=== PATIENT | female | born 1980 | race African-American/Black ===

== ENCOUNTER 2016-09-23 19:38 | Emergency (ER) | payer OTHER ==
[~2016-09-23] VITALS: Ht 175.3 cm; Wt 144.2 kg
--- NOTE | ~2016-09-23 | EKG ---
[address] [place] [address] ELECTROCARDIOGRAM REPORT Name: TOBY CHOWDARY Room #: DEP [facility]#: [id number] Admission: 09/23/16 Attend Phys: Discharge: 09/23/16 Date of : 76 Report #: [id number] THIS REPORT FOR: //name// [facility] ED Test Date: 2016-09-23 Test Time: 19:42:52 Pat Name: TOBY CHOWDARY Department: Room: Gender: F Cleaner Operator: SEMAJ : 1980 Requested By: Carmen Quick Order Number: [id number] MD: Rico Villegas Measurements Intervals [place] Rate: 90 P: 46 SC: 151 QRS: 1 QRSD: 97 T: -2 QT: 375 QTc: 459 Interpretive Statements Sinus rhythm Poor R-wave progression Borderline T abnormalities, inferior leads Compared to ECG 02/10/2016 17:36:05 no significant change was found Electronically Signed On 09-25-2016 8:39:40 LOADING DOCK HELPER by Rico Villegas [email or web address] <ELECTRONICALLY SIGNED> By: Rico Villegas MD, [facility] 09/25/16 0839 41 41 Rico Villegas MD, [facility] /EPI
--- NOTE | ~2016-09-23 | EKG ---
[place] [address] [facility] [place] [address] ELECTROCARDIOGRAM REPORT Name: TOBY CHOWDARY Room #: DEP [facility]#: [id number] Admission: 09/23/16 Attend Phys: Discharge: 09/23/16 Date of : 76 Report #: [id number] THIS REPORT FOR: //name// [facility] ED Test Date: 2016-09-23 Test Time: 21:30:58 Pat Name: TOBY CHOWDARY Department: Room: Gender: F Teacher Vocal: MZOOK : 1980 Requested By: Carmen Quick Order Number: [id number] MD: Rico Villegas Measurements Intervals [place] Rate: 83 P: 41 [place]: 165 QRS: -2 QRSD: 100 T: -1 QT: 397 QTc: 467 Interpretive Statements Sinus rhythm Borderline T abnormalities, inferior leads Baseline wander in lead(s) I Compared to ECG 02/10/2016 17:36:05 no significant change was found Electronically Signed On 09-25-2016 8:42:40 TUNNEL ELASTIC OPERATOR LOCKSTITCH by Rico Villegas [email or web address] <ELECTRONICALLY SIGNED> By: Rico Villegas MD, [facility] 09/25/16 0842 29 29 Rico Villegas MD, [facility] /EPI
[~2016-09-23 19:38] MED LIST: ACETAZOLAMIDE250 M1 PO; ALBUTEROL2.5 MG/0.5 INH; ASPIRIN EC81 M1; AZITHROMYCIN 2250 MG PO; BAYER CHEWABLE81 MG PO; BENADRYL25 MG PO; CIPROFLOXACIN500 M3 PO; CITRATE OF MAG296 ML PO; CLONIDINE-TTS0.3 MG TRANSDERM; COLACE 100 MG100 MG PO; COREG25 MG PO; DEXAMETHASONE 22 M1 PO; FLAGYL500 MG PO; FLEXERIL PO; HYDROCHLOROTHIA25 M2 PO; HYDROCODON-ACE1 EAC7 PO; HYDROCODONE-AP1 EAC6 PO; IBUPROFEN 600600 M1 PO; IBUPROFEN 800800 M1 PO; IBUPROFEN 800800 MG PO; IMITREX 25 MG T25 M1 PO; IRON159 MG PO; IRON325 PO; LISINOPRIL2.5 MG; LISINOPRIL40 MG PO; LOPRESSOR50 PO; MIRAPEX1.5 MG PO; MOBIC15 MG PO; NEURONTIN 300300 M1 PO; NEXIUM10 MG PO; NEXIUM40 MG PO; NORCO 5-325 TA1 EACH PO; PHENERGAN 25 MG25 MG PO; POTASSIUM20 PO; PRISTIQ50 MG; PROVENTIL; PROVERA5 MG PO; RISPERDAL0.25 MG; SINGULAIR 10 MG10 M1 PO; SYMBICORT160 MCG/4. INH; SYMBICORT80 MCG/4.1 INH; TESSALON PERLE100 MG PO; TOPAMAX 25 MG T25 M1 PO; TRAMADOL 50 MG50 MG PO; VALIUM5 MG PO; VALSARTAN-HCTZ1 EAC4 PO; VENTOLIN HFA 1818 GM INH; VICODIN 5-5001 EACH PO; ZOFRAN ODT4 MG PO; ZPAK PO
[2016-09-23 20:23] LABS: HEMATOCRIT 37.5 % (37.0-47.0); MCHC 31.9 % (28.0-37.0); MCV 75.3 fL (80.0-100.0); RBC 4.97 mil/uL (4.20-5.00); RDW 16.5 % (10.5-14.5); WBC 6.8 thou/uL (4.0-11.0)
[2016-09-23 20:31] LABS: ANION GAP 9 mmol/L (7-16); BUN 9 mg/dL (7-18); CALCIUM 9.1 mg/dL (8.5-10.1); CHLORIDE 107 mmol/L (98-107); CO2 28 mmol/L (21-32); CREATININE 0.8 mg/dL (0.6-1.3); GLUCOSE 108 mg/dL (70-99); POTASSIUM 3.7 mmol/L (3.5-5.1); SODIUM 144 mmol/L (136-145)
[2016-09-23 20:40] LABS: ALBUMIN 3.5 g/dL (3.4-5.0); ALKALINE PHOSPHATASE 59 U/L (46-116); SGOT 17 U/L (15-37); SGPT 19 U/L (30-65); TOTAL BILIRUBIN 0.4 mg/dL (<0.1-1.0); TOTAL PROTEIN 7.4 g/dL (6.4-8.2); TROPONIN-I < 0.04 ng/mL (<0.04-0.07)
[2016-09-23] MEDS ORDERED: FLEXERIL PO (21:36)
[2016-09-23] MEDS ORDERED: MOBIC15 MG PO (21:36)
[2016-11-24] MEDS ORDERED: NAPROSYN500 MG PO (16:27)
[2016-11-24] MEDS ORDERED: HYDROCODONE-AP1 EAC6 PO (16:27)
== END 2016-09-23 22:37 | disposition home or self-care (01) ==
LOC: ER 19:38
PROVIDERS: Physician Assistant
DX: R07.89 Other chest pain (principal); I10 Essential (primary) hypertension; G43.809 Other migraine, not intractable, without status migrainosus; J45.909 Unspecified asthma, uncomplicated; G47.39 Other sleep apnea; N80.8 Other endometriosis; K21.9 Gastro-esophageal reflux disease without esophagitis; Z90.49 Acquired absence of other specified parts of digestive tract; Z86.73 Personal history of transient ischemic attack (TIA), and cerebral infarction without residual deficits; Z88.0 Allergy status to penicillin; Z88.8 Allergy status to other drugs, medicaments and biological substances; Z91.012 Allergy to eggs

== ENCOUNTER 2016-10-08 21:38 | Inpatient (IN) | payer OTHER ==
[~2016-10-08] VITALS: Ht 175.3 cm; Wt 143.4 kg
--- NOTE | ~2016-10-08 | CARDNUC ---
[facility] [place] [address] CARDIAC NUCLEAR IMAGING REPORT Name: TOBY CHOWDARY Room #: 209-P [facility] IN ..#: [id number] Admission: 10/10/16 Attend Phys: Linda Kat Discharge: 10/10/16 Date of : 76 Date of Service: 10/10/16 1006 Report #: [id number] THIS REPORT FOR: //name// CC: Linda Reis Guillermina Felisha DATE OF SERVICE: 10/10/2016 MYOCARDIAL PERFUSION IMAGING STUDY USING REGADENOSON GENDER: Female. REFERRING DOCTOR: China Rodriguez MD INDICATION: Chest pain. CORONARY HISTORY: None. CARDIOVASCULAR RISK FACTORS: Hypertension. CARDIAC MEDICATIONS: Carvedilol, losartan, clonidine. TYPE OF STUDY: The patient underwent a SPECT study. STRESS PROTOCOL: A total of 0.4 mg of regadenoson was injected intravenously, followed by Cardiolite. The patient did not ambulate during the procedure. HEMODYNAMIC DATA: The resting heart rate was 81 beats per minute, with a blood pressure 154/80 mmHg. Following regadenoson, the heart rate increased to 120 beats per minute and the systolic blood pressure increased to 160 mmHg. The patient had symptoms consistent with regadenoson, but no chest discomfort. ELECTROCARDIOGRAM: The resting electrocardiogram reveals sinus rhythm, low voltage in the precordial leads, nonspecific ST-T wave abnormalities in the inferolateral leads. Following regadenoson, there were no significant arrhythmias and ECG is uninterpretable for ST segment change. PERFUSION IMAGING: Myocardial perfusion imaging was performed using Cardiolite, 40.4 mCi for the resting images and 41.8 mCi for the stress images. This was a 2-day high dose imaging protocol. Gated SPECT images were obtained. Comparison of the post-pharmacologic stress and rest images reveal a mild area of predominately fixed defect in the distal anterior segment. There is a small area of reversibility. This fixed defect is most likely related to a soft tissue artifact. However, all small area of ischemia could not be excluded. The gated portion of the study revealed normal global and segmental LV systolic [place] [address] CARDIAC NUCLEAR IMAGING REPORT Name: TOBY CHOWDARY Room #: 209-P [facility] IN .R.#: [id number] Admission: 10/10/16 Attend Phys: Linda Kat Discharge: 10/10/16 Date of : 76 Date of Service: 10/10/16 1006 Report #: [id number], ejection fraction of 70%. IMPRESSION: 1. Clinical response, nondiagnostic. 2. Stress ECG response, nondiagnostic. 3. Perfusion imaging, equivocal for ischemia. 4. Ventricular function, normal. CONCLUSION: This study reveals a predominately fixed defect in the distal anterior segment, probably due to a soft tissue artifact. However, there is a small area of reversibility and ischemia cannot be excluded. There is normal global and segmental left ventricular systolic function. <ELECTRONICALLY SIGNED> By: Walter Merritt MD 10/11/16 0815 1006 1028 Walter Merritt MD /nt
--- NOTE | ~2016-10-08 | EKG ---
[place] [address] [facility] [place] [address] ELECTROCARDIOGRAM REPORT Name: TOBY CHOWDARY Room #: 209-[facility] M.R.#: [id number] Admission: 10/08/16 Attend Phys: China Rodriguez MD Discharge: Date of : 76 Report #: [id number] THIS REPORT FOR: //name// [facility] ED Test Date: 2016-10-08 Test Time: 21:42:55 Pat Name: TOBY CHOWDARY Department: Room: 209 Gender: F Protein Chemist: MZLUCIA : 1980 Requested By: Akilah Rojas Order Number: [id number] MD: Rico Villegas Measurements Intervals [place] Rate: 98 P: 54 OR: 151 QRS: -13 QRSD: 98 T: -56 QT: 327 QTc: 418 Interpretive Statements Sinus rhythm Poor R-wave progression Nonspecific T abnormalities, diffuse leads Compared to ECG 09/23/2016 21:30:58 T-wave abnormality more pronounced Electronically Signed On 10-09-2016 7:50:17 MANAGER STORE by Rico Villegas [email or web address] <ELECTRONICALLY SIGNED> By: Rico Villegas MD, [facility] 10/09/16 [facility]0 2142 2142 Rico Villegas MD, [facility] /EPI
--- NOTE | ~2016-10-08 | EKG ---
[address] [place] [address] ELECTROCARDIOGRAM REPORT Name: TOBY CHOWDARY Room #: 209-[facility].R.#: [id number] Admission: 10/08/16 Attend Phys: China Rodriguez MD Discharge: Date of : 76 Report #: [id number] THIS REPORT FOR: //name// [facility] Test Date: 2016-10-09 Test Time: 04:12:59 Pat Name: TOBY CHOWDARY Department: Room: 209 Gender: F Biomedical Engineering Aide: KHUSHBOO : 1980 Requested By: Dannielle Vicente Order Number: [id number] MD: Rico Villegas Measurements Intervals [place] Rate: 81 P: 62 [place]: 165 QRS: -11 QRSD: 94 T: -7 QT: 375 QTc: 436 Interpretive Statements Sinus rhythm Nonspecific T wave abnormality No previous ECGs available for comparison Electronically Signed On 10-09-2016 7:55:20 SUPPLIER QUALITY ENGINEERING MANAGER by Rico Villegas [email or web address] <ELECTRONICALLY SIGNED> By: Rico Villegas MD, [facility] 10/09/16 0755 0412 1 Rico Villegas MD, [facility] /EPI
[2016-10-08 21:40] VITALS: BP 198/121
[2016-10-08] MEDS ORDERED: NAPROSYN500 MG PO (22:11)
[2016-10-08] MEDS ORDERED: ASPIR 8181 MG PO (22:11)
[2016-10-08] MEDS ORDERED: TOPAMAX50 MG PO (22:13)
[2016-10-08 22:44] LABS: ABSOLUTE NEUTROPHILS 4.8 thou/uL (1.4-8.2); HEMATOCRIT 36.7 % (37.0-47.0); HEMOGLOBIN 11.6 gm/dL (12.0-15.0); LYMPHOCYTES 29.2 % (24.0-44.0); MCH 23.6 pg (26.0-34.0); MCHC 31.7 % (28.0-37.0); MCV 74.5 fL (80.0-100.0); MONOCYTES 6.7 % (1.0-8.0); PLATELET COUNT 238 thou/uL (150-400); POLYS 62.1 % (36.0-66.0); RBC 4.92 mil/uL (4.20-5.00); RDW 16.3 % (10.5-14.5); WBC 7.7 thou/uL (4.0-11.0)
[2016-10-08 22:45] LABS: MANUAL DIFF NO
[2016-10-08 22:52] LABS: ANION GAP 7 mmol/L (7-16); BUN 9 mg/dL (7-18); CALCIUM 8.9 mg/dL (8.5-10.1); CHLORIDE 104 mmol/L (98-107); CO2 30 mmol/L (21-32); CREATININE 0.8 mg/dL (0.6-1.3); GLUCOSE 120 mg/dL (70-99); POTASSIUM 3.7 mmol/L (3.5-5.1); SODIUM 141 mmol/L (136-145)
[2016-10-08 22:56] LABS: APTT 22.9 Seconds (24.5-32.8); INR 1.1; PROTIME 10.9 Seconds (9.3-11.4)
[2016-10-08 23:04] LABS: ALBUMIN 3.7 g/dL (3.4-5.0); ALKALINE PHOSPHATASE 56 U/L (46-116); NT-PRO BRAIN NAT PEPTIDE 106 pg/mL (<300); SGOT 9 U/L (15-37); SGPT 16 U/L (30-65); TOTAL BILIRUBIN 0.6 mg/dL (<0.1-1.0); TOTAL PROTEIN 7.7 g/dL (6.4-8.2); TROPONIN-I < 0.04 ng/mL (<0.04-0.07)
[2016-10-08 23:51] VITALS: BP 165/100
[2016-10-09 00:15] VITALS: BP 159/60
[2016-10-09] MEDS ORDERED: IMITREX 50 MG T50 MG PO (01:40)
[2016-10-09 03:31] VITALS: BP 109/74
[2016-10-09 04:53] LABS: CHOLESTEROL 154 mg/dL (<200); HDL CHOLESTEROL 74 mg/dL (>40); LDL CHOLESTEROL 73 mg/dL (<100); TC:HDL 2.1 Ratio (Not establshd); TRIGLYCERIDE 38 mg/dL (<150); TROPONIN-I < 0.04 ng/mL (<0.04-0.07); VLDL 8 mg/dL (<40)
[2016-10-09 07:00] VITALS: BP 138/77
[2016-10-09 11:05] VITALS: BP 141/82
[2016-10-09 16:20] VITALS: BP 123/74
[2016-10-09 20:41] VITALS: BP 115/69
[2016-10-10 05:26] VITALS: BP 125/69
[2016-10-10 08:30] VITALS: BP 142/71
[2016-10-10 12:30] VITALS: BP 142/88
[2016-10-10 17:00] VITALS: BP 142/93
[2016-10-10 17:12] VITALS: BP 142/88
[2016-11-24] MEDS ORDERED: NAPROSYN500 MG PO (16:27)
[2016-11-24] MEDS ORDERED: HYDROCODONE-AP1 EAC6 PO (16:27)
== END 2016-10-10 18:39 | disposition home or self-care (01) | DRG 206 ==
LOC: ER 21:38 → EROBS 23:45 → 2N 23:45
PROVIDERS: Emergency Medicine; Nurse Practitioner Acute Care
DX: M94.0 Chondrocostal junction syndrome [Tietze] (principal); I69.954 Hemiplegia and hemiparesis following unspecified cerebrovascular disease affecting left non-dominant side; K21.9 Gastro-esophageal reflux disease without esophagitis; I10 Essential (primary) hypertension; I16.0 Hypertensive urgency; G47.33 Obstructive sleep apnea (adult) (pediatric); Z96.651 Presence of right artificial knee joint; G43.909 Migraine, unspecified, not intractable, without status migrainosus; J45.909 Unspecified asthma, uncomplicated; Z90.49 Acquired absence of other specified parts of digestive tract; Z88.8 Allergy status to other drugs, medicaments and biological substances; Z91.012 Allergy to eggs; Z88.0 Allergy status to penicillin; Z79.82 Long term (current) use of aspirin; Z86.711 Personal history of pulmonary embolism; Z79.899 Other long term (current) drug therapy; Z82.49 Family history of ischemic heart disease and other diseases of the circulatory system; Z83.3 Family history of diabetes mellitus; Z84.1 Family history of disorders of kidney and ureter; H54.7 Unspecified visual loss; Z91.018 Allergy to other foods
CPT/HCPCS: 10081

== ENCOUNTER 2017-02-11 18:34 | Emergency (ER) | payer OTHER ==
[~2017-02-11] VITALS: Ht 177.8 cm; Wt 127.0 kg
--- NOTE | ~2017-02-11 | EKG ---
[address] [address] ELECTROCARDIOGRAM REPORT Name: TOBY CHOWDARY Room #: DEP [facility]#: [id number] Admission: 02/11/17 Attend Phys: Discharge: 02/11/17 Date of : 76 Report #: [id number] THIS REPORT FOR: //name// [facility] ED Test Date: 2017-02-11 Test Time: 19:34:15 Pat Name: TOBY CHOWDARY Department: Room: Gender: F Naprapath: [id number] : 1980 Requested By: Dakota Burks Order Number: [id number] MD: Edis Paula Measurements Intervals [place] Rate: 81 P: 59 OK: 155 QRS: -6 QRSD: 99 T: 7 QT: 395 QTc: 459 Interpretive Statements Sinus rhythm Probable left atrial enlargement Borderline T wave abnormalities Borderline ST elevation, anterior leads Baseline wander in lead(s) V2 Electronically Signed On 02-12-2017 8:09:17 CDT by Edis Paula [email or web address] <ELECTRONICALLY SIGNED> By: Edis Paula MD 05/808 33 33 Edis Paula MD /JAMILAH
[~2017-02-11 18:34] MED LIST changes: +ASPIR 8181 MG PO; +IMITREX 50 MG T50 MG PO; +NAPROSYN500 MG PO; +TOPAMAX50 MG PO
[2017-02-11 19:39] LABS: ABSOLUTE NEUTROPHILS 3.9 thou/uL (1.4-8.2); BASOPHILS 0.9 % (0.0-2.0); HEMATOCRIT 40.1 % (37.0-47.0); LYMPHOCYTES 32.7 % (24.0-44.0); MCH 23.8 pg (26.0-34.0); MCHC 32.4 g/dL (28.0-37.0); MCV 73.6 fL (80.0-100.0); MONOCYTES 9.3 % (1.0-8.0); PLATELET COUNT 225 thou/uL (150-400); POLYS 55.1 % (36.0-66.0); RBC 5.45 mil/uL (4.20-5.00)
[2017-02-11 19:41] LABS: MANUAL DIFF NO
[2017-02-11 19:52] LABS: ANION GAP 7 mmol/L (7-16); BUN 5 mg/dL (7-18); CALCIUM 9.7 mg/dL (8.5-10.1); CHLORIDE 105 mmol/L (98-107); CO2 30 mmol/L (21-32); CREATININE 0.8 mg/dL (0.6-1.0); GLUCOSE 100 mg/dL (74-106); POTASSIUM 3.8 mmol/L (3.5-5.1); SODIUM 142 mmol/L (136-145)
[2017-02-11 20:04] LABS: NT-PRO BRAIN NAT PEPTIDE 24 pg/mL (<300); TROPONIN-I < 0.04 ng/mL (<0.04-0.07)
[2017-02-11 20:09] LABS: ANISOCYTOSIS 2+; MICROCYTES 2+
== END 2017-02-11 21:38 | disposition home or self-care (01) ==
LOC: ER 18:34
PROVIDERS: Nurse Practitioner
DX: R53.83 Other fatigue (principal); I10 Essential (primary) hypertension; G43.909 Migraine, unspecified, not intractable, without status migrainosus; J45.909 Unspecified asthma, uncomplicated; G47.30 Sleep apnea, unspecified; K21.9 Gastro-esophageal reflux disease without esophagitis; N80.9 Endometriosis, unspecified; Z90.49 Acquired absence of other specified parts of digestive tract; Z86.73 Personal history of transient ischemic attack (TIA), and cerebral infarction without residual deficits; Z88.0 Allergy status to penicillin; Z88.8 Allergy status to other drugs, medicaments and biological substances; Z91.018 Allergy to other foods; Z91.012 Allergy to eggs

== ENCOUNTER 2017-04-24 23:33 | Emergency (ER) | payer OTHER ==
[~2017-04-24] VITALS: Ht 180.3 cm; Wt 140.6 kg
--- NOTE | ~2017-04-24 | EKG ---
[place] [address] [facility] [place] [address] ELECTROCARDIOGRAM REPORT Name: TOBY CHOWDARY Room #: DEP [facility]#: [id number] Admission: 04/24/17 Attend Phys: Discharge: 04/25/17 Date of : 76 Report #: [id number] THIS REPORT FOR: //name// [facility] ED Test Date: 2017-04-25 Test Time: 00:14:52 Pat Name: TOBY CHOWDARY Department: Room: Gender: F Mechanic Marine Engine: RAYRAY : 1980 Requested By: Saritha Bernstein Order Number: [id number] MD: Rico Villegas Measurements Intervals [place] Rate: 87 P: 62 MS: 169 QRS: -1 QRSD: 98 T: -1 QT: 387 QTc: 466 Interpretive Statements Sinus rhythm Probable left atrial enlargement Baseline wander in lead(s) V2 Compared to ECG 02/11/2017 19:34:15 No significant change was found Electronically Signed On 04-26-2017 8:48:22 CDT by Rico Villegas [email or web address] <ELECTRONICALLY SIGNED> By: Rico Villegas MD, [facility] 04/26/17 0848 0014 0014 Rico Villegas MD, [facility] /EPI
[2017-04-25 01:39] LABS: ABSOLUTE NEUTROPHILS 2.9 thou/uL (1.4-8.2); EOSINOPHILS 2.6 % (0.0-3.0); HEMATOCRIT 38.9 % (37.0-47.0); HEMOGLOBIN 12.5 gm/dL (12.0-15.0); LYMPHOCYTES 38.9 % (24.0-44.0); MCH 24.1 pg (26.0-34.0); MCHC 32.2 g/dL (28.0-37.0); MCV 74.8 fL (80.0-100.0); MONOCYTES 8.9 % (1.0-8.0); PLATELET COUNT 200 thou/uL (150-400); POLYS 48.6 % (36.0-66.0); RBC 5.21 mil/uL (4.20-5.00); RDW 17.5 % (10.5-14.5)
[2017-04-25 01:45] LABS: ANION GAP 7 mmol/L (7-16); BUN 7 mg/dL (7-18); CALCIUM 9.4 mg/dL (8.5-10.1); CHLORIDE 103 mmol/L (98-107); CO2 31 mmol/L (21-32); CREATININE 0.8 mg/dL (0.6-1.0); GLUCOSE 96 mg/dL (74-106); POTASSIUM 3.5 mmol/L (3.5-5.1); SODIUM 141 mmol/L (136-145)
[2017-04-25 01:53] LABS: TROPONIN-I < 0.04 ng/mL (<0.04-0.07)
[2017-04-25 01:54] LABS: MANUAL DIFF NO
[2017-04-25] MEDS ORDERED: MOBIC15 MG PO (03:57)
== END 2017-04-25 04:15 | disposition home or self-care (01) ==
LOC: ER 23:33
PROVIDERS: Emergency Medicine
DX: R07.89 Other chest pain (principal); I10 Essential (primary) hypertension; G43.909 Migraine, unspecified, not intractable, without status migrainosus; J45.909 Unspecified asthma, uncomplicated; K21.9 Gastro-esophageal reflux disease without esophagitis; Z98.890 Other specified postprocedural states; Z86.73 Personal history of transient ischemic attack (TIA), and cerebral infarction without residual deficits; Z90.49 Acquired absence of other specified parts of digestive tract; Z88.0 Allergy status to penicillin; Z91.018 Allergy to other foods; Z91.012 Allergy to eggs

== ENCOUNTER 2017-06-29 21:55 | Emergency (ER) | payer OTHER ==
[~2017-06-29] VITALS: Ht 177.8 cm; Wt 142.9 kg
[2017-06-29] MEDS ORDERED: PREDNISONE 20 M20 MG PO (23:33)
== END 2017-06-30 00:07 | disposition home or self-care (01) ==
LOC: ER 21:55
DX: T78.40XA Allergy, unspecified, initial encounter (principal); Z86.711 Personal history of pulmonary embolism; Z88.0 Allergy status to penicillin; Z88.8 Allergy status to other drugs, medicaments and biological substances; Z91.012 Allergy to eggs; Z91.018 Allergy to other foods; I10 Essential (primary) hypertension; J45.909 Unspecified asthma, uncomplicated; K21.9 Gastro-esophageal reflux disease without esophagitis; X58.XXXA Exposure to other specified factors, initial encounter; G43.909 Migraine, unspecified, not intractable, without status migrainosus

== ENCOUNTER 2017-11-25 22:36 | Emergency (ER) | payer OTHER ==
[~2017-11-25] VITALS: Ht 175.3 cm; Wt 136.1 kg
[~2017-11-25 22:36] MED LIST changes: +PREDNISONE 20 M20 MG PO; +XARELTO15 MG PO
[2017-11-25] MEDS ORDERED: LISINOPRIL10 MG PO (22:42)
[2017-11-25] MEDS ORDERED: MIRAPEX0.125 MG PO (22:44)
[2017-11-25] MEDS ORDERED: ULTRAM 50MG TAB50 MG PO ×2 (23:40→23:54)
[2017-11-26 00:18] VITALS: BP 169/98
== END 2017-11-26 00:19 | disposition home or self-care (01) ==
LOC: ER 22:36
DX: M25.561 Pain in right knee (principal); M25.571 Pain in right ankle and joints of right foot; I10 Essential (primary) hypertension; G43.909 Migraine, unspecified, not intractable, without status migrainosus; J45.909 Unspecified asthma, uncomplicated; K21.9 Gastro-esophageal reflux disease without esophagitis; G47.30 Sleep apnea, unspecified; Z90.49 Acquired absence of other specified parts of digestive tract; Z88.0 Allergy status to penicillin

== ENCOUNTER 2018-01-28 14:16 | Emergency (ER) | payer OTHER ==
[~2018-01-28] VITALS: Ht 177.8 cm; Wt 141.1 kg
--- NOTE | ~2018-01-28 | EKG ---
[address] [address] ELECTROCARDIOGRAM REPORT Name: TOBY CHOWDARY Room #: REG [facility]#: [id number] Admission: 01/28/18 Attend Phys: Discharge: Date of : 76 Report #: [id number] THIS REPORT FOR: //name// [facility] ED Test Date: 2018-01-28 Test Time: 14:29:48 Pat Name: TOBY CHOWDARY Department: Room: Gender: F Software Engineer Mobile: AT : 1980 Requested By: Percy Stout Order Number: [id number] MD: Edis Paula Measurements Intervals [place] Rate: 105 P: 43 PA: 150 QRS: -2 QRSD: 91 T: 40 QT: 344 QTc: 455 Interpretive Statements Sinus tachycardia Left atrial enlargement Left ventricular hypertrophy Compared to ECG 04/25/2017 00:14:52 Left ventricular hypertrophy now present Sinus rhythm no longer present Electronically Signed On 01-28-2018 16:45:54 CDT by Edis Paula [email or web address] <ELECTRONICALLY SIGNED> By: Edis Paula MD 01/28/18 1645 1429 1429 Edis Paula MD /JAMILAH
[~2018-01-28 14:16] MED LIST changes: +LISINOPRIL10 MG PO; +MIRAPEX0.125 MG PO; +ULTRAM 50MG TAB50 MG PO
[2018-01-28 15:04] LABS: BASOPHILS 1.9 % (0.0-2.0); EOSINOPHILS 1.2 % (0.0-3.0); HEMATOCRIT 33.2 % (37.0-47.0); HEMOGLOBIN 10.3 gm/dL (12.0-15.0); LYMPHOCYTES 30.2 % (24.0-44.0); MCH 21.1 pg (26.0-34.0); MCHC 31.1 g/dL (28.0-37.0); MCV 67.9 fL (80.0-100.0); PLATELET COUNT 315 thou/uL (150-400); POLYS 57.7 % (36.0-66.0); RBC 4.89 mil/uL (4.20-5.00); RDW 19.3 % (10.5-14.5); WBC 6.9 thou/uL (4.0-11.0)
[2018-01-28 15:15] LABS: ANION GAP 4 mmol/L (7-16); BUN 10 mg/dL (7-18); CALCIUM 9.2 mg/dL (8.5-10.1); CHLORIDE 104 mmol/L (98-107); CO2 31 mmol/L (21-32); GLUCOSE 96 mg/dL (74-106); POTASSIUM 4.4 mmol/L (3.5-5.1); SODIUM 139 mmol/L (136-145)
[2018-01-28 15:24] LABS: ALBUMIN 3.9 g/dL (3.4-5.0); SGOT 30 U/L (15-37); SGPT 18 U/L (30-65); TOTAL BILIRUBIN 0.7 mg/dL (<0.1-1.0); TOTAL PROTEIN 8.2 g/dL (6.4-8.2); TROPONIN-I < 0.04 ng/mL (<0.06)
[2018-01-28 15:40] LABS: ANISOCYTOSIS 2+; HYPOCHROMASIA 2+; MICROCYTES 1+; TARGET CELLS OCCASIONAL
== END 2018-01-28 17:22 | disposition home or self-care (01) ==
LOC: ER 14:16
PROVIDERS: Emergency Medicine
DX: R07.9 Chest pain, unspecified (principal); I10 Essential (primary) hypertension; J45.909 Unspecified asthma, uncomplicated; G43.909 Migraine, unspecified, not intractable, without status migrainosus; K21.9 Gastro-esophageal reflux disease without esophagitis; Z90.49 Acquired absence of other specified parts of digestive tract; Z88.0 Allergy status to penicillin

== ENCOUNTER 2018-02-20 01:34 | Emergency (ER) | payer OTHER | END 2018-02-20 03:39 | disposition home or self-care (01) | LOC: ER 01:34 | DX: R19.7 Diarrhea, unspecified (principal); R11.2 Nausea with vomiting, unspecified; K12.1 Other forms of stomatitis; I10 Essential (primary) hypertension; G43.909 Migraine, unspecified, not intractable, without status migrainosus; J45.909 Unspecified asthma, uncomplicated; K21.9 Gastro-esophageal reflux disease without esophagitis; Z90.49 Acquired absence of other specified parts of digestive tract; Z88.0 Allergy status to penicillin; Z88.8 Allergy status to other drugs, medicaments and biological substances ==

== ENCOUNTER 2018-04-16 09:10 | Emergency (ER) | payer OTHER ==
[~2018-04-16] VITALS: Ht 172.7 cm; Wt 124.7 kg
--- NOTE | ~2018-04-16 | EKG ---
[place] [address] [facility] [place] [address] ELECTROCARDIOGRAM REPORT Name: TOBY CHOWDARY Room #: DEP [facility]#: [id number] Admission: 04/16/18 Attend Phys: Discharge: 04/16/18 Date of : 76 Report #: [id number] THIS REPORT FOR: //name// [facility] ED Test Date: 2018-04-16 Test Time: 09:17:52 Pat Name: TOBY CHOWDARY Department: Room: Gender: F Blower Blast Furnace: ADRIAN : 1980 Requested By: Carmen Quick Order Number: [id number] MD: Rico Villegas Measurements Intervals [place] Rate: 83 P: 49 [place]: 150 QRS: -2 QRSD: 99 T: -1 QT: 395 QTc: 465 Interpretive Statements Sinus rhythm Nonspecific T wave abnormality Left ventricular hypertrophy Compared to ECG 01/28/2018 14:29:48 Sinus tachycardia no longer present Electronically Signed On 04-16-2018 16:13:47 CDT by Rico Villegas [email or web address] <ELECTRONICALLY SIGNED> By: Rico Villegas MD, [facility] 04/16/18 1613 6 6 Rico Villegas MD, [facility] /EPI
[2018-04-16 09:49] LABS: ABSOLUTE NEUTROPHILS 2.5 thou/uL (1.4-8.2); BASOPHILS 1.4 % (0.0-2.0); EOSINOPHILS 2.7 % (0.0-3.0); HEMATOCRIT 30.4 % (37.0-47.0); HEMOGLOBIN 9.5 gm/dL (12.0-15.0); LYMPHOCYTES 37.7 % (24.0-44.0); MCH 20.2 pg (26.0-34.0); MCHC 31.3 g/dL (28.0-37.0); MCV 64.3 fL (80.0-100.0); PLATELET COUNT 209 thou/uL (150-400); POLYS 49.2 % (36.0-66.0); RBC 4.73 mil/uL (4.20-5.00); RDW 19.9 % (10.5-14.5)
[2018-04-16 09:59] LABS: ANION GAP 6 mmol/L (7-16); BUN 10 mg/dL (7-18); CALCIUM 9.2 mg/dL (8.5-10.1); CHLORIDE 105 mmol/L (98-107); CO2 28 mmol/L (21-32); CREATININE 0.8 mg/dL (0.6-1.0); GLUCOSE 94 mg/dL (74-106); POTASSIUM 3.8 mmol/L (3.5-5.1); SODIUM 139 mmol/L (136-145)
[2018-04-16 10:07] LABS: ALBUMIN 3.9 g/dL (3.4-5.0); SGOT 16 U/L (15-37); SGPT 19 U/L (30-65); TOTAL PROTEIN 7.8 g/dL (6.4-8.2); TROPONIN-I <0.06 ng/mL (<0.06)
[2018-04-16 10:52] LABS: ANISOCYTOSIS 2+; HYPOCHROMASIA 1+; MICROCYTES 2+; PLATELET ESTIMATE NORMAL
[2018-04-16 11:13] LABS: URINE BILIRUBIN NEGATIVE (Negative); URINE BLOOD NEGATIVE (Negative); URINE CLARITY CLEAR; URINE COLOR YELLOW; URINE GLUCOSE-RANDOM* NEGATIVE (Negative); URINE KETONES NEGATIVE (Negative); URINE LEUKOCYTES-REFLEX NEGATIVE (Negative); URINE NITRITE-REFLEX NEGATIVE (Negative); URINE PROTEIN (DIPSTICK) NEGATIVE (Negative); URINE UROBILINOGEN 0.2 E.U./dl (0.2-1.0)
[2018-04-16] MEDS ORDERED: ULTRAM 50MG TAB50 MG PO (12:21)
== END 2018-04-16 12:45 | disposition home or self-care (01) ==
LOC: ER 09:10
PROVIDERS: Physician Assistant
DX: R07.89 Other chest pain (principal); I10 Essential (primary) hypertension; D53.9 Nutritional anemia, unspecified; Z91.14 Patient's other noncompliance with medication regimen; G43.909 Migraine, unspecified, not intractable, without status migrainosus; J45.909 Unspecified asthma, uncomplicated; G47.30 Sleep apnea, unspecified; K21.9 Gastro-esophageal reflux disease without esophagitis; Z86.73 Personal history of transient ischemic attack (TIA), and cerebral infarction without residual deficits; Z88.0 Allergy status to penicillin; Z91.012 Allergy to eggs; Z91.02 Food additives allergy status

== ENCOUNTER 2018-09-17 02:19 | Emergency (ER) | payer OTHER ==
[~2018-09-17] VITALS: Ht 177.8 cm; Wt 138.8 kg
[2018-09-17 05:12] LABS: ABSOLUTE NEUTROPHILS 3.4 thou/uL (1.4-8.2); EOSINOPHILS 2.4 % (0.0-3.0); HEMATOCRIT 35.4 % (37.0-47.0); HEMOGLOBIN 10.8 gm/dL (12.0-15.0); LYMPHOCYTES 31.9 % (24.0-44.0); MCHC 30.6 g/dL (28.0-37.0); MCV 65.4 fL (80.0-100.0); PLATELET COUNT 209 thou/uL (150-400); POLYS 55.7 % (36.0-66.0); RBC 5.41 mil/uL (4.20-5.00); RDW 21.6 % (10.5-14.5); WBC 6.2 thou/uL (4.0-11.0)
[2018-09-17 05:18] LABS: ANION GAP 7 mmol/L (7-16); BUN 13 mg/dL (7-18); CALCIUM 9.7 mg/dL (8.5-10.1); CHLORIDE 102 mmol/L (98-107); CO2 30 mmol/L (21-32); CREATININE 0.8 mg/dL (0.6-1.0); GLUCOSE 111 mg/dL (74-106); POTASSIUM 3.7 mmol/L (3.5-5.1); SODIUM 139 mmol/L (136-145)
[2018-09-17 05:27] LABS: ALBUMIN 4.3 g/dL (3.4-5.0); SGOT 17 U/L (15-37); SGPT 18 U/L (30-65); TOTAL BILIRUBIN 0.5 mg/dL (<0.1-1.0); TOTAL PROTEIN 8.6 g/dL (6.4-8.2); TROPONIN-I <0.06 ng/mL (<0.06)
[2018-09-17 06:19] LABS: ANISOCYTOSIS 2+; HYPOCHROMASIA 3+; MICROCYTES 3+
[2018-09-17] MEDS ORDERED: REGLAN 10 MG TA10 MG PO (07:45)
[2018-09-17 08:19] VITALS: BP 131/79
--- NOTE | 2018-09-17 08:48 | EKG ---
[address] [address] ELECTROCARDIOGRAM REPORT Name: TOBY CHOWDARY Room #: DEP [facility]#: [id number] Admission: 09/17/18 Attend Phys: Discharge: 09/17/18 Date of : 76 Report #: [id number] THIS REPORT FOR: //name// [facility] ED Test Date: 2018-09-17 Test Time: 05:12:04 Pat Name: TOBY CHOWDARY Department: Room: Gender: F Ticket Printer: judi : 1980 Requested By: Marilee Loving Order Number: [id number] MD: Edis Paula Measurements Intervals [place] Rate: 88 P: 50 [place]: 160 QRS: -3 QRSD: 99 T: -3 QT: 392 QTc: 475 Interpretive Statements Sinus rhythm Probable left ventricular hypertrophy Borderline T abnormalities, inferior leads Compared to ECG 04/16/2018 09:17:52 No significant changes Electronically Signed On 09-17-2018 8:47:48 PARK RECREATION MANAGER by Edis Paula [email or web address] <ELECTRONICALLY SIGNED> By: Edis Paula MD 09/17/18 0847 1 1 Edis Paula MD /JAMILAH
== END 2018-09-17 08:25 | disposition home or self-care (01) ==
LOC: ER 02:19
PROVIDERS: Student in an Organized Health Care Education/Training Program
DX: R51 Headache (principal); N80.9 Endometriosis, unspecified; K21.9 Gastro-esophageal reflux disease without esophagitis; I10 Essential (primary) hypertension; J45.909 Unspecified asthma, uncomplicated; G47.30 Sleep apnea, unspecified; Z88.0 Allergy status to penicillin; Z86.718 Personal history of other venous thrombosis and embolism; Z88.8 Allergy status to other drugs, medicaments and biological substances; Z91.012 Allergy to eggs; Z91.018 Allergy to other foods; Z86.73 Personal history of transient ischemic attack (TIA), and cerebral infarction without residual deficits; Z90.49 Acquired absence of other specified parts of digestive tract

== ENCOUNTER 2018-12-07 20:39 | Emergency (ER) | payer OTHER ==
[~2018-12-07] VITALS: Ht 175.3 cm; Wt 145.2 kg
[~2018-12-07 20:39] MED LIST changes: +REGLAN 10 MG TA10 MG PO
[2018-12-07 21:23] LABS: HEMATOCRIT 31.5 % (37.0-47.0); MCHC 31.8 g/dL (28.0-37.0); MCV 66.1 fL (80.0-100.0); PLATELET COUNT 226 thou/uL (150-400); RBC 4.77 mil/uL (4.20-5.00); RDW 21.3 % (10.5-14.5)
[2018-12-07 21:28] LABS: ANION GAP 9 mmol/L (7-16); BUN 8 mg/dL (7-18); CALCIUM 9.3 mg/dL (8.5-10.1); CHLORIDE 103 mmol/L (98-107); CO2 28 mmol/L (21-32); CREATININE 0.7 mg/dL (0.6-1.0); GLUCOSE 93 mg/dL (74-106); POTASSIUM 3.6 mmol/L (3.5-5.1); SODIUM 140 mmol/L (136-145)
[2018-12-07 21:38] LABS: TROPONIN-I <0.06 ng/mL (<0.06)
[2018-12-07 23:21] LABS: ABSOLUTE NEUTROPHILS 2.5 thou/uL (1.4-8.2)
[2018-12-07 23:23] LABS: ANISOCYTOSIS 2+; HYPOCHROMASIA 2+; LARGE PLATELETS RARE; MICROCYTES 3+; PLATELET ESTIMATE NORMAL; POLYCHROMASIA 1+
[2018-12-08] MEDS ORDERED: FLEXERIL PO (02:15)
[2018-12-08] MEDS ORDERED: ICY HOT 4%-1%76.5 GM TOP (02:15)
[2018-12-08 02:35] VITALS: BP 161/101
--- NOTE | 2018-12-08 17:00 | EKG ---
[place] [address] [facility] [employer] [place] [address] ELECTROCARDIOGRAM REPORT Name: TOBY CHOWDARY Room #: DEP [facility]#: [id number] ������������������ Admission: 12/07/18 ������������������ Attend Phys: Discharge: 12/08/18 ������������������ Date of : [birth year] Report #: [id number] ����������������������������������������������������������������� [id number] THIS REPORT FOR: //name// [facility] ED Test Date: 2018-12-07 Test Time: 20:54:39 Pat Name: TOBY CHOWDARY Department: Room: Gender: F Newcomer Hostess: KKKINSEY : 1980 Requested By: Marilee Loving Order Number: [id number] MD: Rico Villegas Measurements Intervals [place] Rate: 97 P: 41 SD: 154 QRS: -6 QRSD: 96 T: -1 QT: 373 QTc: 474 Interpretive Statements Sinus rhythm Poor R wave progression Nonspecific T wave abnormality Compared to ECG 09/17/2018 05:12:04 No significant changes Electronically Signed On 12-08-2018 17:00:42 CDT by Rico Villegas [email or web address] ��������������������������������������������� <ELECTRONICALLY SIGNED> ���������������������������������������� By: Rico Villegas MD, [facility] ��������������������������������������������� 03/1699 53 53 Rico Villegas MD, [facility] /EPI
== END 2018-12-08 02:37 | disposition home or self-care (01) ==
LOC: ER 20:39
PROVIDERS: Student in an Organized Health Care Education/Training Program
DX: D50.9 Iron deficiency anemia, unspecified (principal); R07.89 Other chest pain; E04.1 Nontoxic single thyroid nodule; I10 Essential (primary) hypertension; G43.909 Migraine, unspecified, not intractable, without status migrainosus; G47.30 Sleep apnea, unspecified; N80.9 Endometriosis, unspecified; K21.9 Gastro-esophageal reflux disease without esophagitis; Z88.0 Allergy status to penicillin; Z88.6 Allergy status to analgesic agent; Z91.012 Allergy to eggs; Z91.018 Allergy to other foods; Z86.73 Personal history of transient ischemic attack (TIA), and cerebral infarction without residual deficits; Z90.49 Acquired absence of other specified parts of digestive tract; Z86.718 Personal history of other venous thrombosis and embolism; Z86.711 Personal history of pulmonary embolism

== ENCOUNTER 2019-02-07 08:53 | Emergency (ER) | payer OTHER ==
[~2019-02-07] VITALS: Ht 175.3 cm; Wt 139.3 kg
[~2019-02-07 08:53] MED LIST changes: +ICY HOT 4%-1%76.5 GM TOP
[2019-02-07 10:31] LABS: ABSOLUTE NEUTROPHILS 2.4 thou/uL (1.4-8.2); BASOPHILS 1.7 % (0.0-2.0); EOSINOPHILS 3.7 % (0.0-3.0); HEMOGLOBIN 9.4 gm/dL (12.0-15.0); LYMPHOCYTES 37.1 % (24.0-44.0); MCHC 30.5 g/dL (28.0-37.0); MCV 65.7 fL (80.0-100.0); MONOCYTES 9.4 % (1.0-8.0); PLATELET COUNT 260 thou/uL (150-400); POLYS 48.1 % (36.0-66.0); RBC 4.71 mil/uL (4.20-5.00); RDW 19.5 % (10.5-14.5); WBC 4.9 thou/uL (4.0-11.0)
[2019-02-07 10:39] LABS: CALCIUM 9.2 mg/dL (8.5-10.1); CREATININE 0.9 mg/dL (0.6-1.0); POTASSIUM 3.5 mmol/L (3.5-5.1)
[2019-02-07 11:06] VITALS: BP 165/105
[2019-02-07 11:12] LABS: ANISOCYTOSIS 2+
[2019-02-07 11:13] LABS: HYPOCHROMASIA 3+; MICROCYTES 2+; POLYCHROMASIA 1+
== END 2019-02-07 10:56 | disposition home or self-care (01) ==
LOC: ER 08:53
PROVIDERS: Emergency Medicine
DX: N94.6 Dysmenorrhea, unspecified (principal); I10 Essential (primary) hypertension; G43.909 Migraine, unspecified, not intractable, without status migrainosus; J45.909 Unspecified asthma, uncomplicated; K21.9 Gastro-esophageal reflux disease without esophagitis; G47.30 Sleep apnea, unspecified; Z90.49 Acquired absence of other specified parts of digestive tract; Z88.0 Allergy status to penicillin; Z88.6 Allergy status to analgesic agent; Z88.8 Allergy status to other drugs, medicaments and biological substances

== ENCOUNTER 2019-04-12 07:20 | Emergency (ER) | payer OTHER ==
[~2019-04-12] VITALS: Ht 177.8 cm; Wt 145.6 kg
[2019-04-12 07:57] LABS: URINE BILIRUBIN NEGATIVE (Negative); URINE BLOOD NEGATIVE (Negative); URINE CLARITY CLEAR; URINE COLOR YELLOW; URINE GLUCOSE-RANDOM* NEGATIVE (Negative); URINE KETONES NEGATIVE (Negative); URINE LEUKOCYTES-REFLEX NEGATIVE (Negative); URINE NITRITE-REFLEX NEGATIVE (Negative); URINE PROTEIN (DIPSTICK) 1+ (Negative); URINE UROBILINOGEN 0.2 E.U./dl (0.2-1.0)
[2019-04-12] MEDS ORDERED: TOPAMAX100 MG PO (07:58)
[2019-04-12] MEDS ORDERED: AMLODIPINE BESY10 MG PO (07:58)
[2019-04-12 08:17] LABS: CASTS None Seen /LPF (None Seen); CRYSTALS None Seen /LPF (None Seen); SQUAMOUS >10 Many /LPF (0-3)
[2019-04-12 08:18] LABS: BACTERIA-REFLEX 1-9 Few /HPF (None Seen); URINE WBC-REFLEX 0-5 Rare /HPF (0-5)
[2019-04-12 08:19] LABS: URINE RBC None Seen /HPF (0-2)
[2019-04-12 08:39] LABS: ABSOLUTE NEUTROPHILS 4.4 thou/uL (1.4-8.2); BASOPHILS 0.9 % (0.0-2.0); EOSINOPHILS 1.7 % (0.0-3.0); HEMATOCRIT 32.5 % (37.0-47.0); HEMOGLOBIN 10.1 gm/dL (12.0-15.0); LYMPHOCYTES 30.1 % (24.0-44.0); MCH 19.9 pg (26.0-34.0); MCV 64.1 fL (80.0-100.0); MONOCYTES 8.4 % (1.0-8.0); PLATELET COUNT 212 thou/uL (150-400); POLYS 58.9 % (36.0-66.0); RBC 5.07 mil/uL (4.20-5.00); RDW 20.5 % (10.5-14.5); WBC 7.5 thou/uL (4.0-11.0)
[2019-04-12 08:48] LABS: ANION GAP 7 mmol/L (7-16); BUN 13 mg/dL (7-18); CALCIUM 9.7 mg/dL (8.5-10.1); CHLORIDE 102 mmol/L (98-107); CO2 30 mmol/L (21-32); CREATININE 0.8 mg/dL (0.6-1.0); GLUCOSE 128 mg/dL (74-106); POTASSIUM 3.7 mmol/L (3.5-5.1); SODIUM 139 mmol/L (136-145)
[2019-04-12 08:58] LABS: ALBUMIN 3.6 g/dL (3.4-5.0); SGOT 13 U/L (15-37); SGPT 16 U/L (30-65); TOTAL BILIRUBIN 0.4 mg/dL (<0.1-1.0); TOTAL PROTEIN 7.7 g/dL (6.4-8.2); TROPONIN-I <0.06 ng/mL (<0.06)
[2019-04-12 10:29] LABS: ANISOCYTOSIS 2+; MICROCYTES 3+
[2019-04-12 10:30] LABS: HYPOCHROMASIA 2+
[2019-04-12 11:09] VITALS: BP 145/103
--- NOTE | 2019-04-12 19:54 | EKG ---
[address] [address] ELECTROCARDIOGRAM REPORT Name: TOBY CHOWDARY [id number] ������������������ Admission: 04/12/19 ������������������ Attend Phys: Discharge: 04/12/19 ������������������ Date of : [birth year] Report #: [id number] ����������������������������������������������������������������� [id number] THIS REPORT FOR: //name// [facility] ED Test Date: 2019-04-12 Test Time: 08:05:35 Pat Name: TOBY CHOWDARY Department: Room: Gender: F Sales Manager [place]: timothy : 1980 Requested By: Carlos Alberto Whitlock Order Number: [id number] MD: Edis Paula Measurements Intervals [place] Rate: 88 P: 43 OK: 144 QRS: -3 QRSD: 99 T: -1 QT: 375 QTc: 454 Interpretive Statements Sinus rhythm Probable left atrial enlargement Borderline T wave abnormalities Compared to ECG 12/07/2018 20:54:39 Poor R-wave progression no longer present T-wave abnormality still present Electronically Signed On 04-12-2019 19:54:02 CDT by Edis Paula [email or web address] ��������������������������������������������� <ELECTRONICALLY SIGNED> ���������������������������������������� By: Edis Paula MD ��������������������������������������������� 04/12/19 1954 4 4 Edis Paula MD /EPI
== END 2019-04-12 11:10 | disposition home or self-care (01) ==
LOC: ER 07:20
PROVIDERS: Emergency Medicine
DX: R42 Dizziness and giddiness (principal); R11.2 Nausea with vomiting, unspecified; R19.7 Diarrhea, unspecified; I10 Essential (primary) hypertension; J45.909 Unspecified asthma, uncomplicated; G47.00 Insomnia, unspecified; G43.909 Migraine, unspecified, not intractable, without status migrainosus; K21.9 Gastro-esophageal reflux disease without esophagitis; Z90.49 Acquired absence of other specified parts of digestive tract; Z86.711 Personal history of pulmonary embolism; Z86.718 Personal history of other venous thrombosis and embolism; Z88.0 Allergy status to penicillin; Z88.6 Allergy status to analgesic agent; Z91.012 Allergy to eggs; Z91.018 Allergy to other foods; Z86.73 Personal history of transient ischemic attack (TIA), and cerebral infarction without residual deficits

== ENCOUNTER 2019-05-03 09:33 | Emergency (ER) | payer OTHER ==
[~2019-05-03] VITALS: Ht 177.8 cm; Wt 144.7 kg
[~2019-05-03 09:33] MED LIST changes: +AMLODIPINE BESY10 MG PO; +TOPAMAX100 MG PO
[2019-05-03] MEDS ORDERED: REQUIP3 MG PO (09:51)
[2019-05-03 11:00] LABS: ABSOLUTE NEUTROPHILS 3.4 thou/uL (1.4-8.2); EOSINOPHILS 0.8 % (0.0-3.0); HEMATOCRIT 29.9 % (37.0-47.0); HEMOGLOBIN 9.2 gm/dL (12.0-15.0); LYMPHOCYTES 39.8 % (24.0-44.0); MCH 20.3 pg (26.0-34.0); MCHC 30.8 g/dL (28.0-37.0); MCV 65.8 fL (80.0-100.0); MONOCYTES 7.5 % (1.0-8.0); PLATELET COUNT 255 thou/uL (150-400); POLYS 50.9 % (36.0-66.0); RBC 4.55 mil/uL (4.20-5.00); RDW 22.3 % (10.5-14.5); WBC 6.8 thou/uL (4.0-11.0)
[2019-05-03 11:10] LABS: ANION GAP 5 mmol/L (7-16); BUN 12 mg/dL (7-18); CALCIUM 9.3 mg/dL (8.5-10.1); CHLORIDE 103 mmol/L (98-107); CO2 30 mmol/L (21-32); CREATININE 1.1 mg/dL (0.6-1.0); GLUCOSE 84 mg/dL (74-106); POTASSIUM 3.3 mmol/L (3.5-5.1); SODIUM 138 mmol/L (136-145)
[2019-05-03 11:18] LABS: TROPONIN-I <0.06 ng/mL (<0.06)
--- NOTE | 2019-05-03 11:49 | EKG ---
[place] [address] [place] [place] [address] ELECTROCARDIOGRAM REPORT Name: TOBY CHOWDARY Room #: REG [facility]#: [id number] Admission: 05/03/19 Attend Phys: Discharge: Date of : [birth year] Report #: [id number] THIS REPORT FOR: //name// [facility] ED Test Date: 2019-05-03 Test Time: 09:52:35 Pat Name: TOBY CHOWDARY Department: Room: Gender: F Buttonholer: Samantha NORWOOD RN : 1980 Requested By: Saritha Bernstein Order Number: [id number] MD: Walter Merritt Measurements Intervals [place] Rate: 73 P: 33 NE: 142 QRS: 6 QRSD: 96 T: 0 QT: 382 QTc: 421 Interpretive Statements Sinus rhythm Compared to ECG 04/12/2019 08:05:35 T-wave abnormality no longer present Electronically Signed On 05-03-2019 11:49:02 CDT by Walter Merritt [email or web address] <ELECTRONICALLY SIGNED> By: Walter Merritt MD 05/03/19 1149 0952 0952 Walter Merritt MD /JAMILAH
[2019-05-03 12:20] LABS: ANISOCYTOSIS 3+; HYPOCHROMASIA 2+; MICROCYTES 3+; POLYCHROMASIA OCCASIONAL
[2019-05-03] MEDS ORDERED: NORCO 5-325 TA1 EAC1 PO (14:32)
[2019-05-03 14:49] VITALS: BP 143/87
== END 2019-05-03 14:53 | disposition home or self-care (01) ==
LOC: ER 09:33
PROVIDERS: Emergency Medicine
DX: R07.89 Other chest pain (principal); I10 Essential (primary) hypertension; G43.909 Migraine, unspecified, not intractable, without status migrainosus; J45.909 Unspecified asthma, uncomplicated; G47.30 Sleep apnea, unspecified; N80.9 Endometriosis, unspecified; K21.9 Gastro-esophageal reflux disease without esophagitis; Z90.49 Acquired absence of other specified parts of digestive tract; Z86.73 Personal history of transient ischemic attack (TIA), and cerebral infarction without residual deficits; Z86.711 Personal history of pulmonary embolism; Z86.718 Personal history of other venous thrombosis and embolism; Z88.0 Allergy status to penicillin; Z88.6 Allergy status to analgesic agent; Z88.8 Allergy status to other drugs, medicaments and biological substances; Z91.012 Allergy to eggs; Z91.018 Allergy to other foods

== ENCOUNTER → 2020-04-13 | Emergency (ER) | payer OTHER ==
[~2020-04-13] VITALS: Ht 180.3 cm; Wt 138.8 kg
[~2020-04-13] MED LIST changes: +NORCO 5-325 TA1 EAC1 PO; +REQUIP3 MG PO
[2020-04-13 19:50] VITALS: BP 196/106
[2020-04-13 20:16] LABS: URINE BILIRUBIN NEGATIVE (Negative); URINE BLOOD NEGATIVE (Negative); URINE CLARITY CLEAR; URINE COLOR YELLOW; URINE GLUCOSE-RANDOM* NEGATIVE (Negative); URINE KETONES NEGATIVE (Negative); URINE LEUKOCYTES-REFLEX NEGATIVE (Negative); URINE NITRITE-REFLEX NEGATIVE (Negative); URINE PROTEIN (DIPSTICK) NEGATIVE (Negative); URINE SPECIFIC GRAVITY 1.025 (1.005-1.035); URINE UROBILINOGEN 0.2 E.U./dl (0.2-1.0)
== END ==
LOC: ER 19:36
PROVIDERS: Emergency Medicine
DX: R10.84 Generalized abdominal pain (principal); Z53.21 Procedure and treatment not carried out due to patient leaving prior to being seen by health care provider